=== PATIENT | female | born 1945 | race Caucasian/White ===

== ENCOUNTER 2016-05-09 08:48 | Outpatient (CLI) | payer MEDICARE | END 2016-05-09 08:49 | disposition home or self-care (01) | DX: R92.8 Other abnormal and inconclusive findings on diagnostic imaging of breast (principal) ==

== ENCOUNTER 2016-05-15 22:12 | Outpatient (CLI) | payer MEDICARE | END 2016-05-15 22:13 | disposition home or self-care (01) | DX: R07.9 Chest pain, unspecified (principal); R03.0 Elevated blood-pressure reading, without diagnosis of hypertension; R73.09 Other abnormal glucose ==

== ENCOUNTER 2016-08-29 09:21 | Outpatient (CLI) | payer MEDICARE | END 2016-08-29 09:22 | disposition home or self-care (01) | DX: E78.5 Hyperlipidemia, unspecified (principal); Z79.899 Other long term (current) drug therapy ==

== ENCOUNTER 2017-03-14 12:24 | Outpatient (CLI) | payer MEDICARE ==
--- NOTE | 2017-03-14 14:04 | XRAY Report ---
THREE VIEW SACRUM AND COCCYX: 03/14/2017 CLINICAL INDICATION: Pain. FINDINGS: AP, oblique, and lateral views of the sacrum and coccyx demonstrate no evidence of fractur e. The sacral ala are preserved. The sacroiliac joints demonstrate mild degenerative changes. No fusi on or erosion is seen. IMPRESSION: MILD DEGENERATIVE CHANGES OF THE SACROILIAC JOINTS. NO EVIDENCE OF SACRAL OR COCCYGEAL F RACTURE. JOB #: [id number] EXT JOB #:[id number]
== END 2017-03-14 12:25 | disposition home or self-care (01) ==
LOC: DI 12:24
PROVIDERS: ATTEND Nurse Practitioner Primary Care
DX: M47.898 Other spondylosis, sacral and sacrococcygeal region (principal)
CPT/HCPCS: 72220

== ENCOUNTER 2017-04-02 15:17 | Outpatient (CLI) | payer MEDICARE ==
[2017-04-02 13:51] LABS: BASOPHILS % (AUTO) 0.6 %; EOSINOPHILS # (AUTO) 0.2 10^3/uL (0.0-0.7); EOSINOPHILS % (AUTO) 3.6 %; HCT - HEMATOCRIT 41.3 % (37.0-47.0); HGB - HEMOGLOBIN 14.4 g/dL (12.0-16.0); LYMPHOCYTES # (AUTO) 1.4 10^3/uL (1.5-3.5); LYMPHOCYTES % (AUTO) 20.6 %; MEAN CORPUSCULAR HEMOGLOBIN 33.5 pg (27.0-31.0); MEAN CORPUSCULAR HGB CONC 34.8 g/dL (32.0-36.0); MEAN CORPUSCULAR VOLUME 96.3 fL (81.0-99.0); MONOCYTES # (AUTO) 0.4 10^3/uL (0.0-1.0); MONOCYTES % (AUTO) 6.8 %; NEUTROPHILS # (AUTO) 4.5 10^3/uL (1.5-6.6); NEUTROPHILS % (AUTO) 68.4 %; RED BLOOD COUNT 4.29 10^6/uL (4.20-5.40); RED CELL DISTRIBUTION WIDTH 13.4 % (12.0-15.0); UNCORRECTED WHITE BLOOD COUNT 6.6 x10^3/uL; WHITE BLOOD COUNT 6.6 x10^3/uL (4.8-10.8)
[2017-04-02 14:34] LABS: ALBUMIN/GLOBULIN RATIO 1.8 (1.0-2.2); BILIRUBIN,TOTAL 0.7 mg/dL (0.2-1.0); BUN - BLOOD UREA NITROGEN 19 mg/dL (6-20); CALCIUM 9.4 mg/dL (8.5-10.3); CARBON DIOXIDE - CO2 24 mmol/L (21-32); CHLORIDE 102 mmol/L (101-111); CHOL/HDL RATIO 3.3 (<4.4); CHOLESTEROL 183 mg/dL; CREATININE 0.8 mg/dL (0.4-1.0); GFR - MDRD 71 (>89); GLUCOSE 86 mg/dL (70-100); HDL CHOLESTEROL 56 mg/dL; LDL/HDL RATIO 1.6 (<4.4); POTASSIUM 3.4 mmol/L (3.5-5.0); SODIUM 136 mmol/L (135-145); TOTAL PROTEIN 7.6 g/dL (6.7-8.2); TRIGLYCERIDES 190 mg/dL; VLDL CHOLESTEROL 38 mg/dL
[2017-04-02 15:28] LABS: HEMOGLOBIN A1C 0.47 g/dL
== END 2017-04-02 15:18 | disposition home or self-care (01) ==
LOC: LAB.R 15:17
PROVIDERS: ATTEND Nurse Practitioner Primary Care
DX: M81.0 Age-related osteoporosis without current pathological fracture (principal); R73.9 Hyperglycemia, unspecified; R31.1 Benign essential microscopic hematuria
CPT/HCPCS: 80053; 80061; 82306; 83036; 85025

== ENCOUNTER 2017-05-08 08:28 | Outpatient (CLI) | payer MEDICARE | END 2017-05-08 08:29 | disposition EMS.NT | LOC: EMS 08:28 | PROVIDERS: ATTEND Surgery | DX: R20.2 Paresthesia of skin (principal) ==

== ENCOUNTER 2017-10-03 11:04 | Outpatient (CLI) | payer MEDICARE ==
--- NOTE | 2017-10-03 15:37 | XRAY Report ---
SACRUM AND COCCYX: 10/03/2017 HISTORY: Fall with back pain. COMPARISON: 03/14/2017. FINDINGS: Mild degenerative change of the sacroiliac joints similar to 2016. No acute fracture, malalignment, bone destruction or other abnormality. Hip joints well maintained. IMPRESSION: NO ACUTE SACRAL OR COCCYGEAL FRACTURE IS SEEN. TD: 10/03/2017 15:02 [facility]
== END 2017-10-03 11:05 | disposition home or self-care (01) ==
LOC: DI 11:04
PROVIDERS: ATTEND Nurse Practitioner Primary Care
DX: M53.3 Sacrococcygeal disorders, not elsewhere classified (principal); M54.5 Low back pain
CPT/HCPCS: 72220

== ENCOUNTER 2018-04-14 08:00 | Outpatient (CLI) | payer MEDICARE ==
[2018-04-14 13:27] LABS: BASOPHILS % (AUTO) 0.6 %; EOSINOPHILS # (AUTO) 0.3 10^3/uL (0.0-0.7); EOSINOPHILS % (AUTO) 5.4 %; LYMPHOCYTES # (AUTO) 1.4 10^3/uL (1.5-3.5); LYMPHOCYTES % (AUTO) 23.7 %; MEAN CORPUSCULAR HEMOGLOBIN 33.1 pg (27.0-31.0); MEAN CORPUSCULAR HGB CONC 34.5 g/dL (32.0-36.0); MEAN PLATELET VOLUME 8.1 fL (7.9-10.8); MONOCYTES # (AUTO) 0.5 10^3/uL (0.0-1.0); MONOCYTES % (AUTO) 7.7 %; NEUTROPHILS # (AUTO) 3.7 10^3/uL (1.5-6.6); NEUTROPHILS % (AUTO) 62.6 %; PLT - PLATELET COUNT 256 10^3/uL (130-450); RED BLOOD COUNT 4.24 10^6/uL (4.20-5.40); RED CELL DISTRIBUTION WIDTH 13.7 % (12.0-15.0); WHITE BLOOD COUNT 5.9 x10^3/uL (4.8-10.8)
[2018-04-14 13:39] LABS: ALBUMIN 4.3 g/dL (3.2-5.5); ALBUMIN/GLOBULIN RATIO 1.6 (1.0-2.2); ALKALINE PHOSPHATASE 61 IU/L (42-121); ALT ALANINE AMINOTRANSFERASE 21 IU/L (10-60); AST ASPARTATE AMINOTRANSFERASE 21 IU/L (10-42); BILIRUBIN,TOTAL 0.7 mg/dL (0.2-1.0); BUN - BLOOD UREA NITROGEN 16 mg/dL (6-20); CALCIUM 8.9 mg/dL (8.5-10.3); CARBON DIOXIDE - CO2 27 mmol/L (21-32); CHLORIDE 105 mmol/L (101-111); CHOL/HDL RATIO 3.6 (<4.4); CHOLESTEROL 153 mg/dL; CREATININE 0.8 mg/dL (0.4-1.0); GFR - MDRD 71 (>89); GLUCOSE 89 mg/dL (70-100); HDL CHOLESTEROL 42 mg/dL; LDL CHOLESTEROL,CALCULATED 82 mg/dL; SODIUM 141 mmol/L (135-145); VLDL CHOLESTEROL 29 mg/dL
== END 2018-04-14 23:59 | disposition home or self-care (01) ==
LOC: LAB.R 08:00
PROVIDERS: ATTEND Nurse Practitioner Primary Care
DX: R31.1 Benign essential microscopic hematuria (principal); Z79.899 Other long term (current) drug therapy; M81.0 Age-related osteoporosis without current pathological fracture; E78.5 Hyperlipidemia, unspecified; R73.9 Hyperglycemia, unspecified
CPT/HCPCS: 80053; 80061; 83721; 85025

== ENCOUNTER 2018-05-19 14:01 | Outpatient (CLI) | payer MEDICARE ==
--- NOTE | 2018-05-20 08:48 | Mammography Report ---
Reason: PREVENTATIVE HEALTH CARE Procedure Date: 05/19/2018 Accession Number: [id number] / [id number] Procedure: LEANN - Screening Mammo w/Rhys CPT Code: FULL RESULT: EXAM: Screening Mammo w/Rhys DATE: 05/19/2018 2:36 PM CLINICAL HISTORY: Screening encounter. No reported risk factors. TECHNIQUE: Bilateral CC and MLO views were obtained. COMPARISON: 05/09/2016 through 03/25/2011. FINDINGS: The breasts demonstrate scattered fibroglandular densities bilaterally. There are bilateral typically benign vascular calcifications. No suspicious masses, clustered microcalcifications, or regions of architectural distortion are identified. IMPRESSION: Benign findings RECOMMENDATION: Routine annual screening unless otherwise clinically indicated. BIRADS CATEGORY 2: Benign findings STANDARD QUALIFYING STATEMENTS: 1. This examination was not reviewed with the aid of Computer-Aided Detection (CAD). 2. A negative or benign imaging report should not preclude biopsy if clinically suspicious findings are present. 3. Dense breasts may obscure an underlying neoplasm. 4. This examination was reviewed with the aid of 3D breast imaging (tomosynthesis).
== END 2018-05-19 14:02 | disposition home or self-care (01) ==
LOC: DI 14:01
PROVIDERS: ATTEND Nurse Practitioner Primary Care
DX: Z12.31 Encounter for screening mammogram for malignant neoplasm of breast (principal)
CPT/HCPCS: 77063; 77067

== ENCOUNTER 2018-05-19 14:02 | Outpatient (CLI) | payer MEDICARE ==
--- NOTE | 2018-05-20 09:50 | DEXA Report ---
Reason: OSTEOPOROSIS Procedure Date: 05/19/2018 Accession Number: [id number] / [id number] Procedure: DEX - Dexa Spine and/or Hip CPT Code: FULL RESULT: EXAM: Dexa Spine and/or Hip DATE: 05/19/2018 3:09 PM CLINICAL HISTORY: OSTEOPOROSIS TECHNIQUE: Dual energy x-ray absorptiometry (DXA) was performed on a [employer] ! System. Regions measured are the AP Spine, femoral neck, and if needed forearm. COMPARISON: None. In accordance with the International Society for Clinical Densitometry (ISCD) guidelines, data from previous exams may be reanalyzed using current recommendations and techniques. This is done to allow a more accurate basis for comparison with the current study. FINDINGS: The data for the lumbar spine is as follows: BMD (g/cm/cm) T-SCORE Z-SCORE REGION L1 0.878 -2.1 -0.1 L2 0.939 -2.2 -0.2 L3 1.050 -1.2 0.8 L4 1.134 -0.6 1.5 TOTAL 1.006 -1.5 0.6 NOTE: All evaluable vertebrae are used for classification The data for the hip is as follows: BMD (g/cm/cm) T-SCORE Z-SCORE REGION Neck 0.864 -1.3 0.7 TOTAL 0.875 -1.1 0.7 NOTE: The femoral neck or total proximal femur, whichever is lowest, is used for classification. DXA RESULTS SUMMARY: Spine SCAN DATE AGE BMD CHANGE VS CHANGE VS PREVIOUS PREVIOUS % 05[age]19/2018 [age] 1.006 -0.054* -5.1* 04[age]25/2016 70.4 1.060 * Denotes significant change at the 95% confidence level. Denotes dissimilar scan types or analysis methods. DXA RESULTS SUMMARY: Hip SCAN DATE AGE BMD CHANGE VS CHANGE VS PREVIOUS PREVIOUS % 05[birth year]19/2018 72.5 0.875 -0.013 -1.5 04/25/2016 70.4 0.888 * Denotes significant change at the 95% confidence level. Denotes dissimilar scan types or analysis methods. IMPRESSION: THE WHO CLASSIFICATION BASED ON THE INTERNATIONAL REFERENCE STANDARD IS OSTEOPENIA. THE FRACTURE RISK IS INCREASED. RECOMMENDATION: Patients with diagnosis of osteoporosis or osteopenia should have regular bone mineral density assessment. For those eligible for Medicare, routine testing is allowed once every 2 years. Testing frequency can be increased for patients who have rapidly progressing disease or for those who are receiving medical therapy to restore bone mass. COMMENT: World Health Organization (WHO) definitions for osteoporosis and osteopenia: NORMAL BMD: T-score at -1.0 or higher, fracture risk is low OSTEOPENIA BMD: T-score between -1.0 and -2.5, fracture risk is increased. OSTEOPOROSIS BMD: T-score at -2.5 or lower, fracture risk is high. National Osteoporosis Foundation recommends: 1. Obtain adequate dietary calcium (at least 1200 mg per day) and vitamin D (400-800 international units per day). 2. Participate, as appropriate, in regular weightbearing and muscle-strengthening exercise. 3. Avoid tobacco use and reduce alcohol and caffeine intake. 4. For more detailed information see the website at www.NOF.org.
== END 2018-05-19 14:03 | disposition home or self-care (01) ==
LOC: DI 14:02
PROVIDERS: ATTEND Nurse Practitioner Primary Care
DX: M85.89 Other specified disorders of bone density and structure, multiple sites (principal); Z78.0 Asymptomatic menopausal state
CPT/HCPCS: 77080

== ENCOUNTER 2020-05-09 16:39 | Outpatient (CLI) | payer MEDICARE ==
--- OUTSIDE RECORDS SUMMARY | 2020-05-10 04:53 | EXTERNAL MEDICAL SUMMARY RPT | Continuity of Care Document ---
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 Unavailable Unavailable Good Unavailable Unavailable Puhr Unavailable Unavailable Jacus Unavailable Unavailable Problems date description facility 2012-10-09 10:57 FEVER, UNSPECIFIED [facility] 2012-10-09 10:57 COUGH [facility] 2013-01-07 14:44 BONE CARTILAGE DIS NOS [facility] 2013-01-07 14:44 OTH MED,LT,CURRENT USE [facility] 2013-01-07 14:44 OTH SCREEN MAMMO-MALIGN [facility] NEOPLASM OF BREAST 2013-08-30 09:05 MIXED HYPERLIPIDEMIA [facility] 2013-08-30 09:05 SENILE OSTEOPOROSIS [facility] 2013-08-30 09:05 OTH MED,LT,CURRENT USE [facility] 2013-08-30 09:20 COUGH [facility] 2013-08-30 09:20 CHEST PAIN NOS [facility] 2014-03-09 13:07 OTH SCREEN MAMMO-MALIGN [facility] NEOPLASM OF BREAST 2014-08-08 08:48 MIXED HYPERLIPIDEMIA [facility] 2014-08-08 08:48 SENILE OSTEOPOROSIS [facility] 2014-08-08 08:48 OTH MED,LT,CURRENT USE [facility] 2014-09-24 09:56 HEADACHE [facility] 2015-04-06 15:12 ENCNTR SCREEN MAMMOGRAM FOR [facility] MALIGNANT NEOPLASM OF BREAST 2016-01-26 08:00 HYPERLIPIDEMIA, UNSPECIFIED [facility] 2016-01-26 08:00 AGE-RELATED OSTEOPOROSIS W/O [facility] CURRENT PATHOLOGICAL FRACTURE 2016-01-26 08:00 ENCNTR FOR GENERAL ADULT [facility] MEDICAL EXAM W/O ABNORMAL FINDINGS 2016-01-26 08:00 OTHER LONG-TERM (CURRENT) DR[facility] THERAPY 2016-04-25 08:59 OTH DISRD OF BONE DENSITY AND [facility] STRUCTURE, MULTIPLE SITES 2016-04-25 08:59 ENCOUNTER FOR SCREENING FOR [facility] OSTEOPOROSIS 2016-04-25 08:59 ASYMPTOMATIC MENOPAUSAL STATE [facility] 2016-04-25 09:01 OTH ABN AND INCONCLUSIVE [facility] FINDINGS ON DX IMAGING OF BREAST 2016-04-25 09:01 ENCNTR SCREEN MAMMOGRAM FOR [facility] MALIGNANT NEOPLASM OF BREAST 2016-05-09 08:48 OTH ABN AND INCONCLUSIVE [facility] FINDINGS ON DX IMAGING OF BREAST 2016-05-15 22:12 ELEVATED BLOOD-PRESSURE [facility] READING, W/O DIAGNOSIS OF HTN 2016-05-15 22:12 CHEST PAIN, UNSPECIFIED [facility] 2016-05-15 22:12 OTHER ABNORMAL GLUCOSE [facility] 2016-08-29 09:21 HYPERLIPIDEMIA, UNSPECIFIED [facility] 2016-08-29 09:21 OTHER ASSAYER HELPER (CURRENT) DRUG [facility] THERAPY 2017-03-14 12:24 OTHER SPONDYLOSIS, 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 ELSEWHERE CLASSIFIED 2017-10-03 11:04 LOW BACK PAIN [facility] 2018-04-14 08:00 HYPERLIPIDEMIA, UNSPECIFIED [facility] 2018-04-14 08:00 AGE-RELATED OSTEOPOROSIS W/O [facility] CURRENT PATHOLOGICAL FRACTURE 2018-04-14 08:00 BENIGN ESSENTIAL MICROSCOPIC [facility] HEMATURIA 2018-04-14 08:00 HYPERGLYCEMIA, UNSPECIFIED [facility] 2018-04-14 08:00 OTHER LONG-TERM (CURRENT) DRUG [facility] THERAPY 2018-05-19 14:01 ENCNTR SCREEN MAMMOGRAM FOR [facility] MALIGNANT NEOPLASM OF BREAST 2018-05-19 14:02 OTH DISRD OF BONE DENSITY AND [facility] STRUCTURE, MULTIPLE SITES 2018-05-19 14:02 ASYMPTOMATIC MENOPAUSAL STATE [facility] 2019-12-06 08:12 HYPERLIPIDEMIA, UNSPECIFIED [facility] 2019-12-06 08:12 MAJOR DEPRESSIVE DISORDER, [facility] SINGLE EPISODE, UNSPECIFIED 2019-12-06 08:12 ANXIETY DISORDER, UNSPECIFIED [facility] 2019-12-06 08:12 INSOMNIA, UNSPECIFIED [facility] 2019-12-06 08:12 OTH DISRD OF BONE DENSITY AND [facility] STRUCTURE, UNSPECIFIED SITE 2020-04-18 00:00:00 Unspecified essential [facility] hypertension [facility] 2020-04-18 00:00:00 Screening for malignant [facility] neoplasms of colon [facility] 2020-04-18 00:00:00 COLOGUARD (Colorectal cancer [facility] screening; stool-based dna & [facility] fecal occult blood) 2020-04-18 00:00:00 Essential (primary) [facility] hypertension [facility] 2020-04-18 00:00:00 Encounter for screening for [facility] malignant neoplasm of colon [facility] 2020-04-18 00:00:00 Alcohol intake [facility] 2020-04-18 00:00:00 Health-related behavior [facility] 2020-04-18 00:00:00 [facility] 2020-04-18 [facility] 2020-04-18 00:00:00 Screening for malignant [facility] Primary Care neoplasm of colon [facility] 2020-04-18 00:00:00 Details of drug misuse behavior [facility] Primary [facility] 2020-04-18 00:00:00 Hypertensive disorder [facility] 2020-04-18 00:00:[facility] 2020-04-18 00:00:00 [facility] 2020-04-18 [facility]00[facility] description facility 2020-04-18 00:00[facility]00 [facility] description [facility] 2020-04-18 00:00[facility]00 [facility] facility [id number]
== END 2020-05-09 16:40 | disposition home or self-care (01) ==
LOC: COV 16:39
PROVIDERS: ATTEND Family Medicine
DX: M79.10 Myalgia, unspecified site (principal); R53.83 Other fatigue; R19.7 Diarrhea, unspecified; J34.89 Other specified disorders of nose and nasal sinuses; Z20.822 Contact with and (suspected) exposure to COVID-19

== ENCOUNTER 2020-05-22 10:45 | Outpatient (CLI) | payer MEDICARE ==
--- NOTE | 2020-05-22 14:37 | DEXA Report ---
PROCEDURE: Dexa Spine and/or Hip INDICATIONS: OSTEOPENIA TECHNIQUE: Dual energy x-ray absorptiometry (DXA) was performed on a [employer] System. Regions measur ed are the AP Spine, femoral neck, and if needed forearm. COMPARISON: 05/19/2018 and 04/25/2016. FINDINGS: Lumbar Spine: Bone Mineral Density 1.030 g/cm/cm,T score -1.2, there is interval 2.4% increase in total lumbar s pine bone mineral density since 2019 study. Left Hip: Bone Mineral Density 0.862 g/cm/cm,T score -1.2, there is interval 1.5% decrease in left total hip b one mineral density since 2019 study. Left Femoral Neck: Bone Mineral Density 0.833 g/cm/cm, T score -1.5. (T score greater or equal to -1.0: NORMAL) (T score from -1.1 to -2.4: OSTEOPENIA) (T score less than or equal to -2.5 to: OSTEOPOROSIS) Impression: Osteopenia. Patients with diagnosis of osteoporosis or osteopenia should have regular bone mineral density assess ment. For those eligible for Medicare, routine testing is allowed once every 2 years. Testing frequ ency can be increased for patients who have rapidly progressing disease or for those who are receivin g medical therapy to restore bone mass. Reviewed by: Maury Mcgraw MD on 05/22/2020 2:36 PM PST Approved by: Maury Mcgraw MD on 05/22/2020 2:36 PM PST Station ID: [id number]
== END 2020-05-22 10:46 | disposition home or self-care (01) ==
LOC: DI 10:45
PROVIDERS: ATTEND Registered Nurse
DX: M85.89 Other specified disorders of bone density and structure, multiple sites (principal)

== ENCOUNTER 2020-05-30 10:54 | Outpatient (CLI) | payer MEDICARE ==
--- NOTE | 2020-05-31 14:34 | Mammography Report ---
BILATERAL DIGITAL SCREENING MAMMOGRAM 3D/2D: 05/30/2020 CLINICAL: Routine screening. Comparison is made to exams dated: 05/19/2018 mammogram, 05/09/2016 mammogram, and 04/06/2015 mammogra m - [facility]. There are scattered fibroglandular elements in both breasts. No significant masses, calcifications, or other findings are seen in either breast. There has been no significant interval change. IMPRESSION: NEGATIVE There is no mammographic evidence of malignancy. A 1 year screening mammogram is recommended. This exam was interpreted at Station ID: [id number]. NOTE: For mammograms, a report in lay terms will be sent to the patient. Approximately 15% of breast malignancies will not be visualized mammographically. In the management of a palpable breast mass, a negative mammogram must not discourage biopsy of a clinically suspicious lesion. Electronically Signed By: Brady Langley M.D. ddp/penrad:05/30/2020 16:05:11 ACR BI-RADS Category 1: Negative 3341F PARENCHYMAL PATTERN: (A) - The breast(s) demonstrate(s) scattered fibroglandular densities. BI-RADS CATEGORY: (1) - 1 RECOMMENDATION: (ANNUAL) - Recommend routine annual screening mammography. [id number] 1 year screening LATERALITY: (B)
== END 2020-05-30 10:55 | disposition home or self-care (01) ==
LOC: DI.S 10:54
PROVIDERS: ATTEND Registered Nurse
DX: Z12.31 Encounter for screening mammogram for malignant neoplasm of breast (principal)

== ENCOUNTER 2020-09-11 08:00 | Outpatient (CLI) | payer MEDICARE ==
[2020-09-11 18:33] LABS: BASOPHILS % (AUTO) 0.6 %; EOSINOPHILS # (AUTO) 0.3 10^3/uL (0.0-0.7); EOSINOPHILS % (AUTO) 4.2 %; HCT - HEMATOCRIT 43.5 % (37.0-47.0); HGB - HEMOGLOBIN 14.3 g/dL (12.0-16.0); LYMPHOCYTES # (AUTO) 1.6 10^3/uL (1.5-3.5); LYMPHOCYTES % (AUTO) 22.5 %; MEAN CORPUSCULAR HEMOGLOBIN 32.4 pg (27.0-31.0); MEAN CORPUSCULAR HGB CONC 32.9 g/dL (32.0-36.0); MEAN CORPUSCULAR VOLUME 98.4 fL (81.0-99.0); MEAN PLATELET VOLUME 10.1 fL (7.9-10.8); MONOCYTES # (AUTO) 0.6 10^3/uL (0.0-1.0); MONOCYTES % (AUTO) 8.5 %; NEUTROPHILS # (AUTO) 4.6 10^3/uL (1.5-6.6); NEUTROPHILS % (AUTO) 63.9 %; PLT - PLATELET COUNT 246 10^3/uL (130-450); RED BLOOD COUNT 4.42 10^6/uL (4.20-5.40); RED CELL DISTRIBUTION WIDTH 13.2 % (12.0-15.0); WHITE BLOOD COUNT 7.2 x10^3/uL (4.8-10.8)
[2020-09-11 18:59] LABS: ALBUMIN/GLOBULIN RATIO 1.9 (1.0-2.2); ALKALINE PHOSPHATASE 76 IU/L (42-121); ALT ALANINE AMINOTRANSFERASE 30 IU/L (10-60); AST ASPARTATE AMINOTRANSFERASE 21 IU/L (10-42); BILIRUBIN,TOTAL 0.9 mg/dL (0.2-1.0); BUN - BLOOD UREA NITROGEN 15 mg/dL (6-20); CARBON DIOXIDE - CO2 27 mmol/L (21-32); CHLORIDE 104 mmol/L (101-111); CHOL/HDL RATIO 3.9 (<4.4); CHOLESTEROL 183 mg/dL; GFR - MDRD 55 (>89); GLUCOSE 103 mg/dL (70-100); HDL CHOLESTEROL 47 mg/dL; LDL CHOLESTEROL,CALCULATED 93 mg/dL; POTASSIUM 4.4 mmol/L (3.5-5.0); SODIUM 140 mmol/L (135-145); TOTAL PROTEIN 7.6 g/dL (6.7-8.2); TRIGLYCERIDES 213 mg/dL; VLDL CHOLESTEROL 43 mg/dL
== END 2020-09-11 23:59 | disposition home or self-care (01) ==
LOC: LAB.WCP 08:00
PROVIDERS: ATTEND Family Medicine
DX: E78.5 Hyperlipidemia, unspecified (principal); I10 Essential (primary) hypertension
CPT/HCPCS: 36415; 80053; 80061; 83721; 85025

== ENCOUNTER 2021-07-05 06:24 | Day surgery (SDC) | payer MEDICARE ==
[2021-07-05] MEDS ORDERED: LACTATED RINGERS 1,000 ML IV ONE ×2 (06:38→08:19)
[2021-07-05] MEDS ORDERED: PROPOFOL 500 MG/50 ML 500 MG/50 ML VIAL ONE (06:59)
--- NOTE | 2021-07-05 07:19 | ANESTHESIA ---
Pre-Anesthesia VS, & Labs - Diagnosis anxiety, screening - Procedure colonoscopy Vital Signs: Temp Pulse Resp BP Pulse Ox 36.6 C 68 18 117/78 96 07/05/21 06:38 07/05/21 06:38 07/05/21 06:38 07/05/21 06:38 07/05/21 06:38 Height: 5 ft 3 in Weight (kg): 55.7 kg Body Mass Index: 21.7 BMI Classification: Healthy weight - NPO >8 hours - Is Patient ?: No - Lab Results Lab results reviewed: Yes Home Medications and Allergies Home Medications: Ambulatory Orders Alprazolam [Xanax] 1 tab PO PRN PRN 07/05/21 Atorvastatin [Lipitor] 1 tab PO DAILY 07/05/21 Metoprolol Succinate [Toprol Xl] 1 tab PO DAILY 07/05/21 PARoxetine [Paxil] 1 tab PO DAILY 07/05/21 Alprazolam [Xanax] 1 tab PO PRN PRN 07/05/21 Atorvastatin [Lipitor] 1 tab PO DAILY 07/05/21 Metoprolol Succinate [Toprol Xl] 1 tab PO DAILY 07/05/21 PARoxetine [Paxil] 1 tab PO DAILY 07/05/21 Allergies/Adverse Reactions: Allergies Allergy/AdvReac Type Severity Reaction Status Date / Time hydrocodone Allergy Itching Verified 07/05/21 07:01 Sulfa (Sulfonamide Allergy Itching Verified 07/05/21 07:01 Antibiotics) Anes History & Medical History - Anesthetic History Anesthesia Complications: reports: No previous complications Family history of Anesthesia Complications: Denies Family history of Malignant Hyperthermia: Denies - Medical History Cardiovascular: reports: Hypertension, High cholesterol Pulmonary: reports: Pneumonia Gastrointestinal: reports: Colon polyps Urinary: reports: None Musculoskeletal: reports: Osteoarthritis Endocrine/Autoimmune: reports: None Skin: reports: Herpes zoster - Surgical History General: reports: Colonoscopy Gynecologic: reports: Hysterectomy Exam General: Alert, Oriented x3, Cooperative Dental: WNL Mouth Openin Fingerbreadth Neck Mobility: Normal Mallampati classification: II Thyromental Distance: 4-6 cm Respiratory: Lungs clear, Normal breath sounds, No respiratory distress Cardiovascular: Regular rate Neurological: Normal speech Mental/Cognitive Status: Alert/Oriented X3, Normal for patient Cognitive Status: Within normal limits Plan Anesthesia Type: Total IV Consent for Procedure(s) Verified and Reviewed: Yes Code Status: Attempt Resuscitation ASA classification: 2-Mild systemic disease Is this case an emergency?: No
[2021-07-05] MEDS ORDERED: MIDAZOLAM 2 MG/2 ML VIAL ONE (07:27)
[2021-07-05] MEDS ORDERED: ePHEDrine 50 MG/ML VIAL IVP ONE (07:59)
[2021-07-05 08:45] VITALS: BP 102/66
--- NOTE | 2021-07-05 13:17 | ANESTHESIA POST OP EVALUATION ---
Anesthesia Post Eval - Post Anesthesia Eval Vitals: Last Vital Signs Temp 36.6 C 07/05/21 08:44 Pulse 65 07/05/21 08:44 Resp 13 07/05/21 08:44 BP 102/66 07/05/21 08:44 Pulse Ox 94 07/05/21 08:44 CV Function Including HR & BP: Stable Pain Control: Satisfactory Nausea & Vomiting: Negative Mental Status: Baseline Respiratory Status: Airway Patent Hydration Status: Satisfactory Anesthesia Complications: None
== END 2021-07-05 06:25 | disposition home or self-care (01) ==
LOC: SDS 06:24
PROVIDERS: ATTEND Surgery
PROC: 0DBP8ZZ Excision of Rectum, Via Natural or Artificial Opening Endoscopic (ICD-10-PCS; 2021-07-05)
PROC: 0DBM8ZZ Excision of Descending Colon, Via Natural or Artificial Opening Endoscopic (ICD-10-PCS; 2021-07-05)
PROC: 0DBK8ZZ Excision of Ascending Colon, Via Natural or Artificial Opening Endoscopic (ICD-10-PCS; principal; 2021-07-05 07:30)
DX: Z12.11 Encounter for screening for malignant neoplasm of colon (principal); D12.2 Benign neoplasm of ascending colon; D12.4 Benign neoplasm of descending colon; K62.1 Rectal polyp; F41.9 Anxiety disorder, unspecified; G89.29 Other chronic pain; Z87.891 Personal history of nicotine dependence
CPT/HCPCS: 45380; 45385; J7120

== ENCOUNTER 2022-04-12 09:06 | Outpatient (CLI) | payer MEDICARE ==
[2022-04-12 15:31] LABS: CALCIUM 9.2 mg/dL (8.5-10.3); CREATININE 0.9 mg/dL (0.4-1.0); POTASSIUM 4.3 mmol/L (3.5-5.0)
== END 2022-04-12 09:07 | disposition home or self-care (01) ==
LOC: LAB.S 09:06
PROVIDERS: ATTEND Physician Assistant
DX: I10 Essential (primary) hypertension (principal)
CPT/HCPCS: 36415; 80048

== ENCOUNTER 2022-07-15 13:02 | Outpatient (CLI) | payer MEDICARE ==
--- NOTE | 2022-07-16 12:44 | Mammography Report ---
BILATERAL DIGITAL SCREENING MAMMOGRAM 3D/2D: 07/15/2022 CLINICAL: Routine screening. Comparison is made to exams dated: 05/30/2020 mammogram, 05/19/2018 mammogram, 05/09/2016 mammogram, mammogram, and 04/06/2015 mammogram - [facility]. There are scattered areas of fibroglandular density in both breasts (category b / 25%-50% glandular t issue). There are benign vascular calcifications in both breasts. No significant masses, calcifications, or other findings are seen in either breast. There has been no significant interval change. IMPRESSION: BENIGN There is no mammographic evidence of malignancy. A 1 year screening mammogram is recommended. Based on the Tyrer Cuzick model (a risk assessment model) the patients lifetime risk is 3.8% and her 10 year risk is 3.4%. According to the ACR, ACS, and NCCN guidelines, an annual breast MRI exam caro g with mammogram is recommended if the patients lifetime risk is 20% or greater. This exam was interpreted at Station ID: [id number]. NOTE: For mammograms, a report in lay terms will be sent to the patient. Approximately 15% of breast malignancies will not be visualized mammographically. In the management of a palpable breast mass, a negative mammogram must not discourage biopsy of a clinically suspicious lesion. Electronically Signed By: Vicente pham/trav:07/15/2022 14:51:24 letter sent: No_Letter ACR BI-RADS Category 2: Benign Finding(s) 3342F PARENCHYMAL PATTERN: (A) - The breast(s) demonstrate(s) scattered fibroglandular densities. BI-RADS CATEGORY: (2) - 2 Mammogram [id number] 1 year screening LATERALITY: (B)
== END 2022-07-15 13:03 | disposition home or self-care (01) ==
LOC: DI 13:02
DX: Z12.31 Encounter for screening mammogram for malignant neoplasm of breast (principal)

== ENCOUNTER 2022-09-18 15:07 | Outpatient (CLI) | payer MEDICARE ==
--- NOTE | 2022-09-18 18:36 | DEXA Report ---
PROCEDURE: Dexa Spine and/or Hip INDICATIONS: OSTEOPENIA TECHNIQUE: Dual energy x-ray absorptiometry (DXA) was performed on a [employer] System. Regions measur ed are the AP Spine, femoral neck, and if needed forearm. COMPARISON: 05/22/2020 FINDINGS: Lumbar Spine: Bone Mineral Density 1.023 g/cm/cm,T score -1.3. Osteopenia, change from previous -0.7% Left Femoral Neck: Bone Mineral Density 0.815 g/cm/cm, T score -1.6. Osteopenia Left Hip: Bone Mineral Density 0.833 g/cm/cm,T score -1.4. Osteopenia, change from previous -3.4% (T score greater or equal to -1.0: NORMAL) (T score from -1.1 to -2.4: OSTEOPENIA) (T score less than or equal to -2.5 to: OSTEOPOROSIS) Impression: By WHO criteria, this patient has low bone density (osteopenia). Mild, not statistically significant, interval decrease in lumbar spine and left hip bone mineral dens ity. Patients with diagnosis of osteoporosis or osteopenia should have regular bone mineral density assess ment. For those eligible for Medicare, routine testing is allowed once every 2 years. Testing frequ ency can be increased for patients who have rapidly progressing disease or for those who are receivin g medical therapy to restore bone mass. Reviewed by: Mary Yanes MD on 09/18/2022 6:35 PM PDT Approved by: Mary Yanes MD on 09/18/2022 6:35 PM PDT Station ID: [id number]
== END 2022-09-18 15:08 | disposition home or self-care (01) ==
LOC: DI 15:07
PROVIDERS: ATTEND Physician Assistant
DX: M85.89 Other specified disorders of bone density and structure, multiple sites (principal)

== ENCOUNTER 2023-02-21 08:57 | Outpatient (CLI) | payer MEDICARE ==
[2023-02-21 15:35] LABS: BASOPHILS % (AUTO) 0.7 %; EOSINOPHILS # (AUTO) 0.3 10^3/uL (0.0-0.7); EOSINOPHILS % (AUTO) 5.8 %; HCT - HEMATOCRIT 41.3 % (37.0-47.0); HGB - HEMOGLOBIN 13.7 g/dL (12.0-16.0); LYMPHOCYTES # (AUTO) 1.1 10^3/uL (1.5-3.5); LYMPHOCYTES % (AUTO) 19.5 %; MEAN CORPUSCULAR HEMOGLOBIN 32.6 pg (27.0-31.0); MEAN CORPUSCULAR HGB CONC 33.2 g/dL (32.0-36.0); MEAN CORPUSCULAR VOLUME 98.3 fL (81.0-99.0); MEAN PLATELET VOLUME 10.3 fL (7.9-10.8); MONOCYTES # (AUTO) 0.4 10^3/uL (0.0-1.0); MONOCYTES % (AUTO) 7.2 %; NEUTROPHILS # (AUTO) 3.9 10^3/uL (1.5-6.6); NEUTROPHILS % (AUTO) 66.6 %; PLT - PLATELET COUNT 217 10^3/uL (130-450); RED CELL DISTRIBUTION WIDTH 13.3 % (12.0-15.0); WHITE BLOOD COUNT 5.9 x10^3/uL (4.8-10.8)
[2023-02-21 16:37] LABS: ALBUMIN 4.6 g/dL (3.2-5.5); ALKALINE PHOSPHATASE 79 IU/L (42-121); ALT ALANINE AMINOTRANSFERASE 19 IU/L (10-60); AST ASPARTATE AMINOTRANSFERASE 18 IU/L (10-42); BILIRUBIN,TOTAL 0.7 mg/dL (0.2-1.0); BUN - BLOOD UREA NITROGEN 16 mg/dL (6-20); CALCIUM 9.7 mg/dL (8.5-10.3); CARBON DIOXIDE - CO2 28 mmol/L (21-32); CHLORIDE 107 mmol/L (101-111); CHOL/HDL RATIO 4.2 (<4.4); CHOLESTEROL 176 mg/dL; CREATININE 0.8 mg/dL (0.6-1.3); GFR - MDRD 70 (>89); GLUCOSE 94 mg/dL (74-104); HDL CHOLESTEROL 42 mg/dL; LDL CHOLESTEROL,CALCULATED 77 mg/dL; LDL/HDL RATIO 1.8 (<4.4); POTASSIUM 4.3 mmol/L (3.5-4.5); SODIUM 141 mmol/L (135-145); TOTAL PROTEIN 6.9 g/dL (6.4-8.9); TRIGLYCERIDES 285 mg/dL (48-352); VLDL CHOLESTEROL 57 mg/dL
== END 2023-02-21 08:58 | disposition home or self-care (01) ==
LOC: LAB.S 08:57
PROVIDERS: ATTEND Physician Assistant
DX: E78.5 Hyperlipidemia, unspecified (principal); I10 Essential (primary) hypertension
CPT/HCPCS: 36415; 80053; 80061; 83721; 85025

== ENCOUNTER 2023-03-24 08:00 | Outpatient (CLI) | payer MEDICARE | END 2023-03-24 23:59 | disposition home or self-care (01) | LOC: LAB.S 08:00 | PROVIDERS: ATTEND Physician Assistant Medical | DX: J02.9 Acute pharyngitis, unspecified (principal) | CPT/HCPCS: 87070 ==

== ENCOUNTER 2023-10-06 13:25 | Outpatient (CLI) | payer MEDICARE ==
--- NOTE | 2023-10-07 10:55 | Mammography Report ---
BILATERAL DIGITAL SCREENING MAMMOGRAM 3D/2D: 10/06/2023 CLINICAL: Routine screening. Comparison is made to exams dated: 07/15/2022 mammogram, 05/30/2020 mammogram, 05/19/2018 mammogram, 04/28 mammogram, 04/25/2016 mammogram, and 04/06/2015 mammogram - [facility]. There are scattered areas of fibroglandular density in both breasts (category b / 25%-50% glandular t issue). There are benign vascular calcifications in both breasts. No significant masses, calcifications, or other findings are seen in either breast. There has been no significant interval change. IMPRESSION: BENIGN There is no mammographic evidence of malignancy. A 1 year screening mammogram is recommended. Based on the Tyrer Cuzick model (a risk assessment model) the patient's lifetime risk is 3.5% and her 10 year risk is 3.5%. According to the ACR, ACS, and NCCN guidelines, an annual breast MRI exam caro g with mammogram is recommended if the patient's lifetime risk is 20% or greater. This exam was interpreted at Station ID: [id number]. NOTE: For mammograms, a report in lay terms will be sent to the patient. Approximately 15% of breast malignancies will not be visualized mammographically. In the management of a palpable breast mass, a negative mammogram must not discourage biopsy of a clinically suspicious lesion. Electronically Signed By: Saima henley/trav:10/06/2023 17:25:42 letter sent: No_Letter ACR BI-RADS Category 2: Benign Finding(s) 3342F PARENCHYMAL PATTERN: (A) - The breast(s) demonstrate(s) scattered fibroglandular densities. BI-RADS CATEGORY: (2) - 2 RECOMMENDATION: (ANNUAL) - Recommend routine annual screening mammography. [id number] 1 year screening LATERALITY: (B)
== END 2023-10-06 13:26 | disposition home or self-care (01) ==
LOC: DI 13:25
DX: Z12.31 Encounter for screening mammogram for malignant neoplasm of breast (principal); R92.323 Mammographic fibroglandular density, bilateral breasts

== ENCOUNTER 2023-11-21 08:55 | Outpatient (CLI) | payer MEDICARE ==
[2023-11-21 09:10] LABS: BASOPHILS % (AUTO) 0.6 %; EOSINOPHILS # (AUTO) 0.3 10^3/uL (0.0-0.7); EOSINOPHILS % (AUTO) 5.3 %; HGB - HEMOGLOBIN 14.4 g/dL (12.0-16.0); LYMPHOCYTES # (AUTO) 1.4 10^3/uL (1.5-3.5); LYMPHOCYTES % (AUTO) 21.7 %; MEAN CORPUSCULAR HEMOGLOBIN 32.5 pg (27.0-31.0); MEAN CORPUSCULAR HGB CONC 32.7 g/dL (32.0-36.0); MEAN CORPUSCULAR VOLUME 99.3 fL (81.0-99.0); MEAN PLATELET VOLUME 9.7 fL (7.9-10.8); MONOCYTES # (AUTO) 0.4 10^3/uL (0.0-1.0); MONOCYTES % (AUTO) 6.7 %; NEUTROPHILS # (AUTO) 4.1 10^3/uL (1.5-6.6); NEUTROPHILS % (AUTO) 65.4 %; PLT - PLATELET COUNT 254 10^3/uL (130-450); RED BLOOD COUNT 4.43 10^6/uL (4.20-5.40); RED CELL DISTRIBUTION WIDTH 13.3 % (12.0-15.0); WHITE BLOOD COUNT 6.3 x10^3/uL (4.8-10.8)
[2023-11-21 09:30] LABS: ALBUMIN 5.2 g/dL (3.2-5.5); ALBUMIN/GLOBULIN RATIO 1.9 (1.0-2.2); BILIRUBIN,TOTAL 1.1 mg/dL (0.2-1.0); CALCIUM 10.2 mg/dL (8.5-10.3); POTASSIUM 4.1 mmol/L (3.5-4.5); TOTAL PROTEIN 7.9 g/dL (6.4-8.9)
[2023-11-21 09:40] LABS: THYROID STIMULATING HORMONE 1.14 uIU/mL (0.34-5.60)
== END 2023-11-21 08:56 | disposition home or self-care (01) ==
LOC: LAB 08:55
PROVIDERS: ATTEND Physician Assistant
DX: G47.00 Insomnia, unspecified (principal); F41.9 Anxiety disorder, unspecified; F32.A Depression, unspecified; M85.80 Other specified disorders of bone density and structure, unspecified site; R20.2 Paresthesia of skin
CPT/HCPCS: 36415; 80053; 82306; 82607; 84443; 85025